=== PATIENT | female | born 1980 ===

== ENCOUNTER 2017-11-16 01:45 | Emergency (ER) | payer SELFPAY ==
--- NOTE | 2017-11-16 04:54 | C.PDOC ---
History Of Present Illness 37 year old female presents to the ER with a complaint of cough, congestion, and body aches. Patient states she took some advil with mild relief but feels more achy today with chest congestion. Denies fever or sick contact. Time Seen by Provider: 11/16/17 02:12 Chief Complaint (Nursing): Cough, Cold, Congestion History Per: Patient History/Exam Limitations: no limitations Onset/Duration Of Symptoms: Days Current Symptoms Are (Timing): Still Present Location Of Pain: None Sick Contacts (Context): None Associated Symptoms: Cough, Other (Chest congestion). denies: Fever Ear Symptoms: Bilateral: None Recent travel outside of the [place]: No Past Medical History Reviewed: Historical Data, Nursing Documentation, Vital Signs Vital Signs: Last Vital Signs Temp 98.4 F 11/16/17 04:59 Pulse 72 11/16/17 04:59 Resp 18 11/16/17 04:59 BP 116/74 11/16/17 04:59 Pulse Ox 97 11/16/17 04:59 Family History: States: Unknown Family Hx - Social History Hx Alcohol Use: No Hx Substance Use: No - Immunization History Hx Tetanus Toxoid Vaccination: No Hx Influenza Vaccination: No Hx Pneumococcal Vaccination: No Review Of Systems Constitutional: Negative for: Fever, Chills Respiratory: Positive for: Cough, Other (Chest congestion) Gastrointestinal: Negative for: Nausea, Vomiting, Diarrhea Musculoskeletal: Positive for: Other (Body aches) Physical Exam - Physical Exam Appears: Non-toxic, No Acute Distress Skin: Normal Color, Warm, Dry Head: Atraumatic, Normacephalic Eye(s): bilateral: Normal Inspection Nose: Normal Oral Mucosa: Moist Throat: Normal, No Erythema, No Exudate Neck: Normal, Supple Chest: Symmetrical, No Tenderness Cardiovascular: Rhythm Regular Respiratory: Normal Breath Sounds, No Rales, No Rhonchi, No Wheezing Neurological/Psych: Oriented x3, Normal Speech ED Course And Treatment O2 Sat by Pulse Oximetry: 98 (room air) Pulse Ox Interpretation: Normal - Radiology CXR: Interpreted by Me, Viewed By Me CXR Interpretation: Yes: No Acute Disease. No: Infiltrates Progress Note: CXR ordered, results were negative. Toradol administered. Patient reports improvement of pain, resting comfortably in no acute distress. Will discharge home with Rx and instructions to follow up with PMD for further evaluation or return if symptoms worsen. Disposition Counseled Patient/Family Regarding: Diagnosis, Need For Followup, Rx Given - Disposition Referrals: [facility] [Outside] Disposition: HOME/ ROUTINE Disposition Time: 04:51 Condition: STABLE Additional Instructions: Please follow up in clinic Take meds as directed Increase PO fluids Return to ER if worse Prescriptions: Benzonatate [Tessalon Perles] 100 mg PO TID #20 sgl Cetirizine HCl [Zyrtec] 10 mg PO DAILY #20 capsule Naproxen [Naprosyn] 1 tab PO BID PRN #20 tab PRN Reason: Pain Instructions: Viral Syndrome (ED) Forms: [employer] (Hungarian), Work Excuse Print Language: GABONESE - Clinical Impression Clinical Impression: Viral disease - PA / SUPERVISOR RECORD PRESS / Resident Statement MD/DO has reviewed & agrees with the documentation as recorded. - Scribe Statement The provider has reviewed the documentation as recorded by the Scribdee dee Ingram All medical record entries made by the Scribdee dee were at my direction and personally dictated by me. I have reviewed the chart and agree that the record accurately reflects my personal performance of the history, physical exam, medical decision making, and the department course for this patient. I have also personally directed, reviewed, and agree with the discharge instructions and disposition.
[2017-11-16 05:00] VITALS: BP 116/74; PULSE 72; RESP 18; TEMP 98.4
[2017-11-16 06:03] VITALS: O2SAT 98
--- NOTE | 2017-11-16 10:16 | RAD ---
HISTORY: cough, congestion COMPARISON: None available. TECHNIQUE: Chest PA and lateral FINDINGS: Examination limited by habitus. LUNGS: No focal consolidation. Please note that chest x-ray has limited sensitivity for the detection of pulmonary masses. PLEURA: No significant pleural effusion identified. No definite pneumothorax . CARDIOVASCULAR: Heart size appears within normal limits. OSSEOUS STRUCTURES: No acute osseous abnormality identified. VISUALIZED UPPER ABDOMEN: Unremarkable. OTHER FINDINGS: None. IMPRESSION: No focal consolidation, significant pleural effusion, or definite pneumothorax identified.
== END 2017-11-16 05:08 | disposition home or self-care (01) ==
LOC: C.ER 01:45
DX: B34.9 Viral infection, unspecified (principal)
CPT/HCPCS: 71046; 96372; 99284; J1885